=== PATIENT | female | born 2000 | race American Indian/Alaskan Native ===

== ENCOUNTER 2019-10-09 18:09 | Emergency (ER) | payer BC, MEDICAID ==
[~2019-10-09] VITALS: Ht 154.9 cm; Wt 90.0 kg
[~2019-10-09 18:09] MED LIST: NO HOME MEDS; ONDA4TAB6 PO
[2019-10-09 20:09] VITALS: BP 143/99
== END 2019-10-09 21:08 | disposition home or self-care (01) ==
LOC: ER 18:09
DX: O02.1 Missed abortion (principal); O26.851 Spotting complicating pregnancy, first trimester; G43.909 Migraine, unspecified, not intractable, without status migrainosus; Z86.69 Personal history of other diseases of the nervous system and sense organs; Z79.899 Other long term (current) drug therapy; Z3A.01 Less than 8 weeks gestation of pregnancy
CPT/HCPCS: 36415; 76801; 76817; 84702; 99284

== ENCOUNTER 2020-05-17 10:10 | Emergency (ER) | payer MEDICAID ==
[~2020-05-17] VITALS: Ht 154.9 cm; Wt 84.0 kg
[2020-05-17 10:19] VITALS: BP 116/61
[2020-05-17] MEDS ORDERED: acetaminophen 325mg tablet PO ONE (10:55)
[2020-05-17] MEDS ORDERED: ketorolac trometh inj. 60 MG/2 ML VIAL IM ONE ×2 (10:55→11:08)
[2020-05-17] MEDS ORDERED: proCHLORperazine 10mg tablet PO ONE (10:55)
--- NOTE | 2020-05-17 11:06 | NUR ---
PER dR. EDMONDSON OK TO GIVE TORADOL PATIENT IS 3 WEEKS .
[2020-05-17 11:37] LABS: CLARITY,URINE SLIGHTLY CLOUDY (Clear); COLOR,URINE YELLOW (Yellow); GLUCOSE, URINE NEGATIVE (Neg); KETONES,URINE NEGATIVE (Neg); LEUKOCYTE ESTERASE ,URINE NEGATIVE (Neg); NITRITES, URINE NEGATIVE (Neg); OCCULT BLOOD,URINE TRACE-INTACT (Neg); PROTEIN,URINE NEGATIVE (Neg); UROBILINOGEN,URINE 0.2 E.U/dL (0.2-1.0)
[2020-05-17 11:38] LABS: UA COLLECTION TYPE CLN CATCH MIDSTREAM; URINE HCG POSITIVE (NEG)
[2020-05-17 11:50] LABS: BACTERIA,URINE 1+ /HPF (Neg); SQUAMOUS EPITHELIAL CELL,UR MODERATE /LPF (FEW)
[2020-05-17 11:51] LABS: RBC,URINE 0-2 /HPF (0-2); WBC,URINE 0-4 /HPF (0-4)
== END 2020-05-17 11:25 | disposition home or self-care (01) ==
LOC: ER 10:10
DX: G43.909 Migraine, unspecified, not intractable, without status migrainosus (principal); R11.10 Vomiting, unspecified; Z86.69 Personal history of other diseases of the nervous system and sense organs; Z88.1 Allergy status to other antibiotic agents; Z79.899 Other long term (current) drug therapy
CPT/HCPCS: 81001; 81025; 96372; 99283; J1885; Q0164

== ENCOUNTER 2020-07-02 12:10 | Emergency (ER) | payer MEDICAID ==
[~2020-07-02] VITALS: Ht 154.9 cm; Wt 78.2 kg
[2020-07-02 12:17] VITALS: BP 139/84
[2020-07-02] MEDS ORDERED: proCHLORperazine 10 MG/2 ml inj IV ONE (12:40)
[2020-07-02] MEDS ORDERED: normal saline 1000ML IV soln IVB ONE (12:40)
[2020-07-02] MEDS ORDERED: ketorolac tromethamine 15mg/ml inj. IV ONE (12:40)
--- NOTE | 2020-07-02 12:54 | NUR ---
Pt denies vaginal bleeding or cramping. She is crying, refusing to give urine sample, "I just came here for toradol."
[2020-07-02 13:05] LABS: BASOPHILS % (AUTO) 0.6 % (0-1); EOSINOPHILS # (AUTO) 0.1 X10'3 (0-0.9); EOSINOPHILS % (AUTO) 1.7 % (0-6); HEMATOCRIT 37.8 % (35.0-45.0); HEMOGLOBIN 12.9 g/dl (12.0-16.0); LYMPHOCYTES # (AUTO) 1.9 X10'3 (1.1-4.8); LYMPHOCYTES % (AUTO) 32.1 % (21-51); MEAN CORPUSCULAR HEMOGLOBIN 29.7 PG (27.0-31.0); MEAN CORPUSCULAR HGB CONC 34.2 g/dL (33.0-36.5); MEAN CORPUSCULAR VOLUME 86.8 FL (78-98); MEAN PLATELET VOLUME 8.2 FL (7.4-10.4); MONOCYTES # (AUTO) 0.5 X10'3 (0-0.9); MONOCYTES % (AUTO) 8.3 % (2-12); NEUTROPHILS # (AUTO) 3.4 X10'3 (1.8-7.7); NEUTROPHILS % (AUTO) 57.3 % (42-75); PLATELET COUNT 247 X10'3 (140-440); RED BLOOD COUNT 4.35 X10'6 (4.20-5.60); RED CELL DISTRIBUTION WIDTH 13.8 % (11.5-14.5)
[2020-07-02 13:20] LABS: ALANINE AMINOTRANSFERASE 17 U/L (12-78); ALBUMIN 3.2 G/DL (3.4-5.0); ALBUMIN/GLOBULIN RATIO 0.7 (1.1-1.5); ALKALINE PHOSPHATASE 64 IU/L (46-116); ANION GAP 8 (8-16); ASPARTATE AMINO TRANSFERASE 5 U/L (10-37); BILIRUBIN,TOTAL 0.4 MG/DL (0.1-1.0); BLOOD UREA NITROGEN 6 MG/DL (7-18); BUN/CREATININE RATIO 10.5 (6.6-38.0); CALCIUM 8.6 MG/DL (8.5-10.1); CHLORIDE 104 MMOL/L (99-107); CREATININE 0.57 MG/DL (0.40-0.90); GLUCOSE 92 MG/DL (70-104); POTASSIUM 3.5 MMOL/L (3.5-5.1); SODIUM 137 MMOL/L (135-145); TOTAL PROTEIN 7.6 G/DL (6.4-8.2); eGFR > 90 ML/MIN
== END 2020-07-02 13:35 | disposition home or self-care (01) ==
LOC: ER 12:11
DX: O99.351 Diseases of the nervous system complicating pregnancy, first trimester (principal); G43.909 Migraine, unspecified, not intractable, without status migrainosus; G40.909 Epilepsy, unspecified, not intractable, without status epilepticus; Z3A.12 12 weeks gestation of pregnancy; Z88.1 Allergy status to other antibiotic agents; Z79.899 Other long term (current) drug therapy
CPT/HCPCS: 36415; 80053; 85025; 99283